=== PATIENT | female | born 1940 | race Caucasian/White ===

== ENCOUNTER 2019-05-12 10:05 | Inpatient (IN) | payer BC, MEDICARE ==
[~2019-05-12] VITALS: Ht 152.4 cm; Wt 43.6 kg
[~2019-05-12 10:05] MED LIST: APIX2.5T ORAL; DIPH1TAB PO; FER325 PO; LANT3I SC; NEBI10TA2 ORAL; SPIR25TA PO; ZOLP10TA5 ORAL
[2019-05-12 10:25] VITALS: Ht 152.4 cm; Wt 43.6 kg
[2019-05-12] MEDS ORDERED: SOD CHLORIDE 0.9% 1,000 ML IV STA (10:30)
[2019-05-12] MEDS ORDERED: SOD CHLORIDE 0.9% 1,000 ML IV ONE (13:00)
[2019-05-12] MEDS ORDERED: ACETAMINOPHEN 325 MG TAB PO PRN (13:30)
[2019-05-12] MEDS ORDERED: ONDANSETRON 4 MG INJ IV PRN ×2 (13:30→15:30)
[2019-05-12] MEDS: POTASSIUM CHLORIDE 100 ML IVPB SCH (14:07)
[2019-05-12 14:48] VITALS: BP 160/73; PULSE 80; RESP 18
[2019-05-12] MEDS ORDERED: NACL 0.9% 3 ML SYG IV SCH (15:30)
[2019-05-12] MEDS ORDERED: morphine 2 MG INJ IV PRN (15:30)
[2019-05-12] MEDS ORDERED: HYDROCODONE/APAP (5/325) TAB PO PRN (15:30)
[2019-05-12] MEDS ORDERED: GLUCOSE GEL 15 GRAM TUBE PO PRN ×2 (16:00)
[2019-05-12] MEDS ORDERED: DEXTROSE 50% 50 ML SYRINGE IV PRN ×2 (16:00)
[2019-05-12] MEDS ORDERED: GLUCAGON 1 MG INJ IM PRN (16:00)
[2019-05-12] MEDS ORDERED: GLUCOSE GEL 15 GRAM TUBE BUCCAL PRN (16:00)
[2019-05-12] MEDS: INSULIN ASPART [NOVOLOG] 3 ML PEN SC SCH ×2 (18:02→21:00)
[2019-05-12 20:07] VITALS: BP 147/66; PULSE 85; RESP 18
[2019-05-12] MEDS ORDERED: APIXABAN 5 MG TABLET PO SCH (21:00)
[2019-05-12] MEDS: POTASSIUM CHLORIDE 40 MEQ in SOD CHLORIDE 0.9% 1,000 ML IV SCH (21:19)
[2019-05-12] MEDS: DIPHENOXYLATE/ATROPINE TAB PO PRN (22:08)
[2019-05-12] MEDS: ZOLPIDEM 5 MG TAB PO PRN (22:08)
[2019-05-13] MEDS: POTASSIUM CHLORIDE 100 ML IVPB SCH (00:51)
[2019-05-13] MEDS: ACCU-CHEK XX SCH ×2 (02:00→20:18)
[2019-05-13 02:33] VITALS: BP 143/65; PULSE 82; RESP 18
[2019-05-13] MEDS: POTASSIUM CHLORIDE 40 MEQ in SOD CHLORIDE 0.9% 1,000 ML IV SCH ×2 (05:00→13:01)
[2019-05-13] MEDS: DIPHENOXYLATE/ATROPINE TAB PO PRN (05:48)
[2019-05-13 07:23] VITALS: BP 120/58; PULSE 72; RESP 18
[2019-05-13] MEDS: INSULIN ASPART [NOVOLOG] 3 ML PEN SC SCH ×4 (08:00→20:18)
[2019-05-13] MEDS: FERROUS SULFATE (EC) 325 MG TAB PO SCH (10:43)
[2019-05-13 13:39] VITALS: BP 149/68; PULSE 79; RESP 20
[2019-05-13] MEDS ORDERED: CEFTRIAXONE 1 GM/50 ML (PMX) 50 ML IVPB SCH (16:00)
[2019-05-13 20:16] VITALS: BP 146/75; PULSE 87; RESP 18
[2019-05-14 02:00] VITALS: BP 123/63; PULSE 75; RESP 18
[2019-05-14] MEDS: POTASSIUM CHLORIDE 40 MEQ in SOD CHLORIDE 0.9% 1,000 ML IV SCH ×2 (03:17→20:56)
[2019-05-14 07:34] VITALS: BP 131/67; PULSE 69; RESP 16
[2019-05-14] MEDS: FERROUS SULFATE (EC) 325 MG TAB PO SCH (08:46)
[2019-05-14] MEDS: INSULIN ASPART [NOVOLOG] 3 ML PEN SC SCH ×4 (08:48→21:12)
[2019-05-14] MEDS ORDERED: ENOXAPARIN 40 MG/0.4 ML SYG SC SCH (09:00)
[2019-05-14 13:20] VITALS: BP 137/69; PULSE 66; RESP 18
[2019-05-14] MEDS: CEFTRIAXONE 1 GM/50 ML (PMX) 50 ML IVPB SCH (16:29)
[2019-05-14 19:24] VITALS: BP 135/67; PULSE 77; RESP 18
[2019-05-14] MEDS: APIXABAN 2.5 MG TABLET PO SCH (22:32)
[2019-05-14] MEDS: ACETAMINOPHEN 325 MG TAB PO PRN (22:32)
[2019-05-15] MEDS: ACCU-CHEK XX SCH (02:00)
[2019-05-15 02:11] VITALS: BP 134/63; PULSE 72; RESP 18
[2019-05-15] MEDS: POTASSIUM CHLORIDE 40 MEQ in SOD CHLORIDE 0.9% 1,000 ML IV SCH ×2 (07:00→11:12)
[2019-05-15 07:21] VITALS: BP 145/68; PULSE 74; RESP 16
[2019-05-15] MEDS: INSULIN ASPART [NOVOLOG] 3 ML PEN SC SCH ×4 (08:00→20:46)
[2019-05-15] MEDS: APIXABAN 2.5 MG TABLET PO SCH ×2 (08:21→20:43)
[2019-05-15] MEDS: FERROUS SULFATE (EC) 325 MG TAB PO SCH (08:21)
[2019-05-15 13:14] VITALS: BP 138/67; PULSE 69; RESP 20
[2019-05-15] MEDS ORDERED: SOD CHLORIDE 0.9% 250 ML IV* ONE (13:48)
[2019-05-15 14:49] VITALS: BP 147/85; PULSE 98; RESP 18
[2019-05-15] MEDS: SENNA/DOCUSATE NA (8.6MG/50MG) TAB PO SCH (15:00)
[2019-05-15] MEDS: CEFTRIAXONE 1 GM/50 ML (PMX) 50 ML IVPB SCH (15:09)
[2019-05-15 19:22] VITALS: BP 152/70; PULSE 70; RESP 17
[2019-05-15] MEDS: ACETAMINOPHEN 325 MG TAB PO PRN (20:43)
[2019-05-15] MEDS: FAMOTIDINE 20 MG TAB PO SCH (20:43)
[2019-05-16] MEDS: ACCU-CHEK XX SCH (01:04)
[2019-05-16 03:21] VITALS: BP_SYST 127; PULSE 60; RESP 18
[2019-05-16 03:22] VITALS: BP 156/73; PULSE 63; RESP 18
[2019-05-16] MEDS: INSULIN ASPART [NOVOLOG] 3 ML PEN SC SCH ×4 (08:00→21:00)
[2019-05-16 08:15] VITALS: BP 178/83; PULSE 62; RESP 18
[2019-05-16] MEDS: FERROUS SULFATE (EC) 325 MG TAB PO SCH (08:23)
[2019-05-16] MEDS: APIXABAN 2.5 MG TABLET PO SCH ×2 (08:23→21:00)
[2019-05-16] MEDS: SENNA/DOCUSATE NA (8.6MG/50MG) TAB PO SCH (08:24)
[2019-05-16] MEDS: METOPROLOL (XL) 50 MG TAB PO SCH (14:30)
[2019-05-16 14:46] VITALS: PULSE 60; RESP 18
[2019-05-16] MEDS: CEFTRIAXONE 1 GM/50 ML (PMX) 50 ML IVPB SCH (17:30)
[2019-05-16 19:14] VITALS: BP 157/76; PULSE 67; RESP 17
[2019-05-16] MEDS: FAMOTIDINE 20 MG TAB PO SCH (21:00)
[2019-05-16] MEDS: ZOLPIDEM 5 MG TAB PO PRN (21:59)
[2019-05-17] MEDS: ACCU-CHEK XX SCH (02:00)
[2019-05-17] MEDS: INSULIN ASPART [NOVOLOG] 3 ML PEN SC SCH ×4 (08:00→20:38)
[2019-05-17 08:12] VITALS: BP 182/82; PULSE 64; RESP 18
[2019-05-17] MEDS: APIXABAN 2.5 MG TABLET PO SCH ×2 (08:33→20:34)
[2019-05-17] MEDS: FERROUS SULFATE (EC) 325 MG TAB PO SCH (08:34)
[2019-05-17] MEDS: METOPROLOL (XL) 50 MG TAB PO SCH (08:35)
[2019-05-17] MEDS: SENNA/DOCUSATE NA (8.6MG/50MG) TAB PO SCH (08:37)
[2019-05-17 12:55] VITALS: BP 141/65; PULSE 64; RESP 18
[2019-05-17] MEDS: CEFTRIAXONE 1 GM/50 ML (PMX) 50 ML IVPB SCH (16:44)
[2019-05-17 19:56] VITALS: BP 154/70; PULSE 61; RESP 16
[2019-05-17] MEDS: FAMOTIDINE 20 MG TAB PO SCH (20:34)
[2019-05-17] MEDS: ZOLPIDEM 5 MG TAB PO PRN (21:42)
[2019-05-18] VITALS (19 sets, daily range): BP systolic 63–193; BP diastolic 11–91; PULSE 57–83; RESP 12–28
[2019-05-18] MEDS: ACCU-CHEK XX SCH (02:00)
[2019-05-18] MEDS: INSULIN ASPART [NOVOLOG] 3 ML PEN SC SCH ×4 (08:00→20:50)
[2019-05-18] MEDS: FERROUS SULFATE (EC) 325 MG TAB PO SCH (08:07)
[2019-05-18] MEDS: APIXABAN 2.5 MG TABLET PO SCH ×2 (08:07→20:32)
[2019-05-18] MEDS: METOPROLOL (XL) 50 MG TAB PO SCH (08:07)
[2019-05-18] MEDS: SENNA/DOCUSATE NA (8.6MG/50MG) TAB PO SCH (09:00)
[2019-05-18] MEDS ORDERED: IOHEXOL 100 ML ONE (11:10)
[2019-05-18] MEDS ORDERED: SOD CHLORIDE 0.9% 100 ML ONE (11:10)
[2019-05-18] MEDS: hydrALAzine 20 MG INJ IV PRN (14:13)
[2019-05-18] MEDS: SOD CHLORIDE 0.45% 1,000 ML IV SCH (15:46)
[2019-05-18] MEDS: CEFTRIAXONE 1 GM/50 ML (PMX) 50 ML IVPB SCH (15:46)
[2019-05-18] MEDS: FAMOTIDINE 20 MG TAB PO SCH (20:32)
[2019-05-18] MEDS: ZOLPIDEM 5 MG TAB PO PRN (20:38)
[2019-05-19] VITALS (7 sets, daily range): BP systolic 134–192; BP diastolic 65–86; PULSE 62–74; RESP 16–20
[2019-05-19] MEDS: ACCU-CHEK XX SCH (02:01)
[2019-05-19] MEDS: SOD CHLORIDE 0.45% 1,000 ML IV SCH (05:26)
[2019-05-19] MEDS: INSULIN ASPART [NOVOLOG] 3 ML PEN SC SCH ×4 (07:55→21:00)
[2019-05-19] MEDS: SENNA/DOCUSATE NA (8.6MG/50MG) TAB PO SCH (08:10)
[2019-05-19] MEDS: APIXABAN 2.5 MG TABLET PO SCH ×2 (08:56→21:14)
[2019-05-19] MEDS: FERROUS SULFATE (EC) 325 MG TAB PO SCH (08:56)
[2019-05-19] MEDS: METOPROLOL (XL) 50 MG TAB PO SCH (08:57)
[2019-05-19] MEDS ORDERED: POTASSIUM CHLORIDE 100 ML IVPB ONE (12:00)
[2019-05-19] MEDS: CEFTRIAXONE 1 GM/50 ML (PMX) 50 ML IVPB SCH (16:17)
[2019-05-19] MEDS: hydrALAzine 20 MG INJ IV PRN (17:19)
[2019-05-19] MEDS: ASCORBIC ACID 500 MG TAB PO SCH (21:14)
[2019-05-19] MEDS: FAMOTIDINE 20 MG TAB PO SCH (21:15)
[2019-05-20 00:48] VITALS: BP 131/60; PULSE 64; RESP 18
[2019-05-20] MEDS: ACCU-CHEK XX SCH (02:00)
[2019-05-20] MEDS: SOD CHLORIDE 0.45% 1,000 ML IV SCH (03:36)
[2019-05-20 04:05] VITALS: BP 110/58; PULSE 80; RESP 18
[2019-05-20 07:33] VITALS: PULSE 76; RESP 18
[2019-05-20] MEDS: INSULIN ASPART [NOVOLOG] 3 ML PEN SC SCH ×4 (08:00→20:36)
[2019-05-20] MEDS: APIXABAN 2.5 MG TABLET PO SCH ×2 (10:02→20:26)
[2019-05-20] MEDS: ASCORBIC ACID 500 MG TAB PO SCH ×2 (10:02→20:26)
[2019-05-20] MEDS: FERROUS SULFATE (EC) 325 MG TAB PO SCH (10:02)
[2019-05-20] MEDS: ZINC SULFATE 220 MG CAP PO SCH (10:02)
[2019-05-20] MEDS: SENNA/DOCUSATE NA (8.6MG/50MG) TAB PO SCH (10:03)
[2019-05-20] MEDS: METOPROLOL (XL) 50 MG TAB PO SCH (10:04)
[2019-05-20] MEDS: MULTIVITAMINS THERAPEUTIC TAB PO SCH (10:04)
[2019-05-20 11:35] VITALS: BP 155/70; PULSE 65; RESP 18
[2019-05-20 15:33] VITALS: BP 143/66; PULSE 64; RESP 18
[2019-05-20] MEDS: POTASSIUM CHLORIDE 20 MEQ POWDER FOR ORAL SOLN PO SCH (17:55)
[2019-05-20 19:45] VITALS: BP 146/68; PULSE 63; RESP 18
[2019-05-20] MEDS: FAMOTIDINE 20 MG TAB PO SCH (20:26)
[2019-05-21 00:41] VITALS: BP 155/73; PULSE 65; RESP 18
[2019-05-21] MEDS: ACCU-CHEK XX SCH (02:00)
[2019-05-21] MEDS: SOD CHLORIDE 0.45% 1,000 ML IV SCH (03:32)
[2019-05-21 04:00] VITALS: BP 160/76; PULSE 59; RESP 18
[2019-05-21 07:39] VITALS: BP 165/74; PULSE 68; RESP 18
[2019-05-21] MEDS: INSULIN ASPART [NOVOLOG] 3 ML PEN SC SCH ×2 (08:00→12:03)
[2019-05-21] MEDS: FERROUS SULFATE (EC) 325 MG TAB PO SCH (08:26)
[2019-05-21] MEDS: MULTIVITAMINS THERAPEUTIC TAB PO SCH (08:26)
[2019-05-21] MEDS: ASCORBIC ACID 500 MG TAB PO SCH (08:26)
[2019-05-21] MEDS: SENNA/DOCUSATE NA (8.6MG/50MG) TAB PO SCH (08:26)
[2019-05-21] MEDS: ZINC SULFATE 220 MG CAP PO SCH (08:27)
[2019-05-21] MEDS: APIXABAN 2.5 MG TABLET PO SCH (08:31)
[2019-05-21] MEDS: METOPROLOL (XL) 50 MG TAB PO SCH (08:34)
[2019-05-21] MEDS: POTASSIUM CHLORIDE 20 MEQ POWDER FOR ORAL SOLN PO SCH (08:35)
[2019-05-21 11:46] VITALS: BP 154/70; PULSE 62; RESP 18
[2019-05-21 14:42] VITALS: BP 173/76; PULSE 64
[2019-05-21 15:09] VITALS: BP 156/71; PULSE 68
[2019-05-22] MEDS ORDERED: LISINOPRIL 10 MG TAB PO SCH (21:00)
== END 2019-05-21 15:20 | DRG 871 ==
LOC: E/R 10:05 → 2NE 13:13 → ICU 05-18 10:28 → 6WM 05-18 15:25
PROVIDERS: ADMIT Internal Medicine; ATTEND Internal Medicine
DX: A41.9 Sepsis, unspecified organism (principal); L89.153 Pressure ulcer of sacral region, stage 3; C25.9 Malignant neoplasm of pancreas, unspecified; C79.9 Secondary malignant neoplasm of unspecified site; N39.0 Urinary tract infection, site not specified; I82.509 Chronic embolism and thrombosis of unspecified deep veins of unspecified lower extremity; G81.91 Hemiplegia, unspecified affecting right dominant side; E86.0 Dehydration; E11.9 Type 2 diabetes mellitus without complications; D64.9 Anemia, unspecified; D63.8 Anemia in other chronic diseases classified elsewhere; E87.6 Hypokalemia; R55 Syncope and collapse; E88.81 Metabolic syndrome and other insulin resistance; D32.9 Benign neoplasm of meninges, unspecified; I10 Essential (primary) hypertension; Z91.81 History of falling; Z79.01 Long term (current) use of anticoagulants; R47.81 Slurred speech
CPT/HCPCS: 36430; 70450; 70496; 70498; 70553; 71045; 80048; 80053; 80061; 81001; 82962; 83036; 83735; 84100; 84484; 85025; 85610; 85730; 86850; 86900; 86901; 86920; 92610; 93005; 93306; 97116; 97162; 97164; 97530; J0360; J0696; J1650; J1815; J3480; J7030; J7040; P9016; Q9967